=== PATIENT | female | born 1950 | race Asian ===

== ENCOUNTER 2020-11-24 09:36 | Outpatient (CLI) | payer MEDICARE, BC ==
[2020-11-24] MEDS ORDERED: METH5TAB2 PO (18:08)
[2020-11-24] MEDS ORDERED: LEVO50TA5 PO (18:08)
[2020-11-24] MEDS ORDERED: APIX5TAB PO (18:08)
[2020-11-24] MEDS ORDERED: OXYC5CAP2 PO (18:09)
[2020-11-29] MEDS ORDERED: ATOR40TA78 PO (12:02)
[2020-11-29] MEDS ORDERED: AMOX1TAB64 PO (13:34)
== END 2020-11-24 23:59 | disposition home or self-care (01) ==
LOC: ROC 09:36
PROVIDERS: ATTEND Radiology Radiation Oncology
DX: C79.31 Secondary malignant neoplasm of brain (principal); F17.210 Nicotine dependence, cigarettes, uncomplicated; E78.5 Hyperlipidemia, unspecified; E03.9 Hypothyroidism, unspecified; Z85.118 Personal history of other malignant neoplasm of bronchus and lung
CPT/HCPCS: G0463

== ENCOUNTER → 2020-11-24 | Outpatient (CLI) | payer MEDICARE, BC ==
[~2020-11-24] MED LIST: APIX5TAB PO; GADOTERATE 5 MMOL/10ML SYR ONE; LEVO50TA5 PO; METH5TAB2 PO; OXYC5CAP2 PO
== END | disposition home or self-care (01) ==
LOC: RAD 14:13
PROVIDERS: ATTEND Radiology Radiation Oncology
DX: C79.31 Secondary malignant neoplasm of brain (principal); I63.9 Cerebral infarction, unspecified
CPT/HCPCS: 70553; A9575